=== PATIENT | female | born 1975 | race Caucasian/White ===

== ENCOUNTER 2021-01-28 17:15 | Emergency (ER) | payer OTHER ==
[~2021-01-28] VITALS: Ht 167.6 cm; Wt 90.0 kg
[~2021-01-28 17:15] MED LIST: ERGO500017 PO
[2021-01-28 17:39] VITALS: BP 149/79
[2021-01-28] MEDS ORDERED: IBUPROFEN 200 MG TABLET PO ONE (18:00)
[2021-01-28] MEDS ORDERED: IBUPROFEN 600 MG TABLET ONE (19:35)
== END 2021-01-28 20:07 | disposition home or self-care (01) ==
LOC: ED 20:00
DX: S93.402A Sprain of unspecified ligament of left ankle, initial encounter (principal); X50.0XXA Overexertion from strenuous movement or load, initial encounter; Y93.89 Activity, other specified; Y92.69 Other specified industrial and construction area as the place of occurrence of the external cause; Y99.0 Civilian activity done for income or pay
CPT/HCPCS: 99283